=== PATIENT | female | born 1940 | race Caucasian/White ===

== ENCOUNTER → 2018-10-05 | Outpatient (CLI) | payer BC ==
--- NOTE | 2018-10-05 17:09 | PCVCIMAG ---
APPROVED REPORT Study performed: 10/05/2018 12:27:03 EXAM: Comprehensive 2D, Doppler, and color-flow Echocardiogram Patient Location: Echo lab Status: routine BSA: 1.66 HR: 67 bpmBP: 118/82 mmHg Rhythm: Atrial Fibrillation Other Information Study Quality: Adequate Indications Atrial Fibrillation CAD hx ND, aortic stenosis 2D Dimensions IVSd: 10.66 (7-11mm)LVOT Diam: 19.93 (18-24mm) LVDd: 44.80 mm PWd: 10.17 (7-11mm)Ascending Ao: 32.84 (22-36mm) LVDs: 36.61 (25-40mm) Left Atrium: 46.57 (27-40mm) Aortic Root: 33.08 mm LV Single Plane 4CH: 41.20 % LV Single Plane 2CH: 37.54 % Biplane EF: 39.3 % Volumes Left Atrial Volume (Systole) Single Plane 4CH: 86.64 mLSingle Plane 2CH: 89.92 mL LA ESV Index: 55.00 mL/m2 Aortic Valve AoV Peak Kehinde.: 2.03 m/s AO Peak Gr.: 16.46 mmHgLVOT Max P.16 mmHg AO Mean Gr.: 8.81 mmHgLVOT Mean P.13 mmHg AO V2 Mean: 1.39 m/sLVOT Max V: 0.74 m/s AO V2 VTI: 42.01 cmLVOT Mean V: 0.50 m/s JEANNIE (VTI): 1.10 bo2TUET V1 VTI: 14.82 cm JEANNIE Vmax: 1.13 cm2 SV (LVOT): 46.22 mL Pulmonary Valve PV Peak Kehinde.: 0.69 m/sPV Peak Gr.: 1.92 mmHg Tricuspid Valve TR Peak Kehinde.: 2.45 m/s TR Peak Gr.: 23.95 mmHg Left Ventricle The left ventricle is normal size. There is global hypokinesis of the left ventricle. There is normal left ventricular wall thickness. Left ventricular systolic function is mildly decreased. LVEF is 45%. This study is not technically sufficient to allow evaluation of the LV diastolic function due to atrial fibrillation. Right Ventricle The right ventricle is normal size. The right ventricular systolic function is normal. Atria Left atrium is severely dilated. Right atrium is moderately dilated. Aortic Valve The aortic valve is moderately calcified, trileaflet. No aortic regurgitation is present. There is mild to moderate valvular aortic stenosis. Calculated aortic valve area is 1.1 cm2 with maximum pressure gradient of 16 mmHg and mean pressure gradient of 9 mmHg. Mitral Valve The mitral valve is normal in structure. Trace mitral regurgitation. No evidence of mitral valve stenosis. Tricuspid Valve The tricuspid valve is normal in structure. Mild tricuspid regurgitation with PAP of 30 mmHg. Pulmonic Valve The pulmonary valve is normal in structure. Trace pulmonic regurgitation. Great Vessels The aortic root is normal in size. IVC is normal in size and collapses >50% with inspiration. Pericardium There is no pericardial effusion. There is no pleural effusion. <Conclusion> Left ventricular systolic function is mildly decreased. There is global hypokinesis of the left ventricle. LVEF is 45%. Both atria are severely dilated. The aortic valve is moderately calcified, trileaflet. Mild to moderate valvular aortic stenosis. Calculated aortic valve area is 1.1 cm2 (Peak gradient of 16 mmHg and mean pressure gradient of 9 mmHg). The mitral valve is normal in structure. Trace mitral regurgitation. Mild tricuspid regurgitation with pulmonary artery pressure of 30 mmHg. There is no pericardial effusion.
== END | disposition home or self-care (01) ==
LOC: PCVCIMAG 12:51
PROVIDERS: ATTEND Internal Medicine
DX: I07.1 Rheumatic tricuspid insufficiency (principal); I48.2 Chronic atrial fibrillation; I42.9 Cardiomyopathy, unspecified; I25.10 Atherosclerotic heart disease of native coronary artery without angina pectoris; Z87.891 Personal history of nicotine dependence; Z79.82 Long term (current) use of aspirin
CPT/HCPCS: 93306